=== PATIENT | male | born 1995 | race Caucasian/White ===

== ENCOUNTER 2016-08-22 22:36 | Observation (INO) | payer BC ==
--- NOTE | 2016-08-22 23:15 | PDOC ---
History of Present Illness - General Chief Complaint: Chest Pain Stated Complaint: CHEST PAIN X 2 DAYS Time Seen by Provider: 08/22/16 22:51 - History of Present Illness Initial Comments: 08/22/16 23:10 21-year-old male with a past medical history of hyperlipidemia, who is on no medications He is a nonsmoker, NKDA, and he denies any cocaine or drug use His mother had an WA at age 35 Patient is complaining of left sided chest tightness off and on for "a while", but for the past week, he has had multiple episodes of left sided chest tightness, radiating to his left shoulder, and it was almost constant today It is occasionally worse after eating and worse laying flat, and unrelated to exertion, but sometimes worse with musculoskeletal maneuvers He denies any associated abdominal pain He does admit to associated shortness of breath, and occasional palpitations It is also sometimes worse with deep inspiration He denies any travel or leg swelling He denies any cough or sputum, or recent intercurrent illnesses He states that the pain is been almost constant all day today He has been taking baby aspirin when he gets this chest pain which often helps him He denies any fall or injury He states he does not lift weights or do sports He denies any history of a heart murmur He denies any other complaints at this time, and the remainder of the review of systems is negative Past History - Past Medical History Allergies/Adverse Reactions: Allergies Allergy/AdvReac Type Severity Reaction Status Date / Time No Known Allergies Allergy Verified 08/22/16 23:27 Home Medications: Ambulatory Orders NK [No Known Home Medication] 08/22/16 Review of Systems - Review of Systems Able to Perform ROS?: Yes Comments:: 08/22/16 23:13 12 point review of systems is as per history of present illness and otherwise negative *Physical Exam - Physical Exam Comments: 08/22/16 23:13 Physical exam Last Vital Signs Temp Pulse Resp BP Pulse Ox 98.2 F 86 18 145/90 99 08/22/16 22:37 08/22/16 22:37 08/22/16 22:37 08/22/16 22:37 08/22/16 22:37 GENERAL: The patient is awake, alert, and fully oriented, and in no apparent distress. HEAD: Normal with no signs of trauma. EYES: sclera anicteric, conjunctiva are normal. ENT: Moist mucous membranes. NECK: Normal range of motion, supple LUNGS: Breath sounds equal, clear to auscultation bilaterally. No wheezes, and no crackles. HEART: Regular rate and rhythm, normal S1 and S2 without murmur, rub or gallop. CHEST WALL: There is some mild tenderness to palpation of the left anterior chest wall ABDOMEN: Soft, nontender, normoactive bowel sounds. No guarding, no rebound. No masses appreciated. EXTREMITIES: Normal range of motion, no edema. No clubbing or cyanosis. No cords, erythema, or tenderness. NEUROLOGICAL: Cranial nerves II through XII grossly intact. Normal speech, normal gait. PSYCH: Normal mood, normal affect. SKIN: Warm, Dry, normal turgor, no rashes or lesions noted. Heart Score/ECG Review - History History: Slightly suspicious - Electrocardiogram EKG: Non specific repolarization disturbance - Age Age: </= 45 - Risk Factors Risk Factors Heart Score: Yes Hx Hypercholesterolemia, Yes Positive family hx of cardiac disease Based on the list above the patient has:: 1-2 risk factors - Troponin Troponin: </= normal limit - Score Heart Score - Total: 2 ED Treatment Course - LABORATORY CBC & Chemistry Diagram: 08/23/16 00:35 08/23/16 00:35 Medical Decision Making - Medical Decision Making 08/22/16 23:51 EKG Normal sinus rhythm 80, normal axis Normal AV and IV conduction time Normal QTC LVH ND depression J-point elevation versus possible pericarditis pattern 08/23/16 01:47 21-year-old male with some cardiac risk factors, as well as a mildly abnormal EKG He is pain-free after aspirin Pain is somewhat atypical However given the above, would place in observation for serial enzymes, and cardiology consult Laboratory Results - last 24 hr 08/23/16 08/23/16 08/23/16 00:35 00:35 00:35 WBC 7.4 RBC 5.54 Hgb 15.1 Hct 45.7 MCV 82.6 MCHC 32.9 RDW 13.1 Plt Count 198 MPV 9.7 Sodium 143 Potassium 3.7 Chloride 105 Carbon Dioxide 28 Anion Gap 10 BUN 9 Creatinine 0.8 Creat Clearance w eGFR > 60 Random Glucose 92 Calcium 9.1 Total Bilirubin 0.4 AST 20 ALT 44 Alkaline Phosphatase 125 H Creatine Kinase 108 Troponin I < 0.02 Total Protein 7.5 Albumin 4.3 ESR is still pending 08/23/16 01:54 CXR PA and lat - NAD *DC/Admit/Observation/Transfer Diagnosis at time of Disposition: Chest pain, Abnormal EKG - Discharge Dispostion Condition at time of disposition: Good Admit: Yes
[2016-08-22] MEDS ORDERED: ASPIRIN 81 MG CHEWABLE TABLETS PO ONE (23:16)
[2016-08-22] MEDS ORDERED: ASPIRIN 81 MG CHEWABLE TABLETS ONE (23:30)
[2016-08-23 01:04] LABS: MCH 27.2 pg (25.7-33.7); MCHC 32.9 g/dl (32.0-35.9); MEAN CELL VOLUME 82.6 fl (80-96); MEAN PLT VOLUME 9.7 fl (7.5-11.1); PLATELET COUNT 198 K/MM3 (134-434); RDW 13.1 % (11.9-15.9); WHITE BLOOD COUNT 7.4 K/mm3 (4.0-10.0)
[2016-08-23 01:29] LABS: ALBUMIN 4.3 g/dl (3.4-5.0); ANION GAP 10 (8-16); BILIRUBIN,TOTAL 0.4 mg/dL (0.2-1.0); CALCIUM 9.1 mg/dL (8.5-10.1); CO2 28 mmol/L (21-32); CREATININE 0.8 mg/dL (0.7-1.3); GLUCOSE,RANDOM 92 mg/dL (74-106); SGOT/AST 20 U/L (15-37); SGPT/ALT 44 U/L (12-78); TOT PROT 7.5 g/dl (6.4-8.2)
[2016-08-23 01:31] LABS: ALK PHOS 125 U/L (45-117)
[2016-08-23 01:35] LABS: TROPONIN I < 0.02 ng/ml (0.00-0.05)
[2016-08-23 03:33] VITALS: BMI 22.8
--- NOTE | 2016-08-23 07:58 | HP ---
CHIEF COMPLAINT: palpations PCP: HISTORY OF PRESENT ILLNESS: patient is a 21 y/o male with a past medical history of hyperlipidemia (no medications). Patient reports intermittent episodes of palpations within the past 2 weeks. He reports the palpations occur while at rest towards the end of the day. In addition, he reports yesterday afternoon, left sided chest discomfort radiating to the left shoulder which became more frequent throughout the day and worsened upon lying down. As a result, he sought evaluation in the emergency department. Patient denies any shortness of breath or dizziness or syncopal episodes. ER course was notable for: (1) EKG, nsr, normal axis (2) troponin x 1, wnl (3) chest xray no infilitrates no effusions noted Recent Travel: none PAST MEDICAL HISTORY: hyperlpidemia PAST SURGICAL HISTORY: denies Social History: college student, resides at home with parents Smoking: none Alcohol:none Drugs: none Family History: father alive and well, mother Allergies No Known Allergies Allergy (Verified 08/22/16 23:27) HOME MEDICATIONS: Home Medications Medication Instructions Recorded NK [No Known Home Medication] 08/22/16 REVIEW OF SYSTEMS CONSTITUTIONAL: Absent: fever, chills, diaphoresis, generalized weakness, malaise, loss of appetite, weight change HEENT: Absent: rhinorrhea, nasal congestion, throat pain, throat swelling, difficulty swallowing, mouth swelling, ear pain, eye pain, visual changes CARDIOVASCULAR: Absent: chest pain, syncope, palpitations, irregular heart rate, lightheadedness , peripheral edema RESPIRATORY: Absent: cough, shortness of breath, dyspnea with exertion, orthopnea, wheezing, stridor, hemoptysis GASTROINTESTINAL: Absent: abdominal pain, abdominal distension, nausea, vomiting, diarrhea, constipation, melena, hematochezia GENITOURINARY: Absent: dysuria, frequency, urgency, hesitancy, hematuria, flank pain, genital pain MUSCULOSKELETAL: Absent: myalgia, arthralgia, joint swelling, back pain, neck pain SKIN: Absent: rash, itching, pallor HEMATOLOGIC/IMMUNOLOGIC: Absent: easy bleeding, easy bruising, lymphadenopathy, frequent infections ENDOCRINE: Absent: unexplained weight gain, unexplained weight loss, heat intolerance, cold intolerance NEUROLOGIC: Absent: headache, focal weakness or paresthesias, dizziness, unsteady gait, seizure, mental status changes, bladder or bowel incontinence PSYCHIATRIC: Absent: anxiety, depression, suicidal or homicidal ideation, hallucinations. PHYSICAL EXAMINATION Vital Signs - 24 hr 08/23/16 08/23/16 08/23/16 03:40 03:41 06:01 Temperature 98.3 F 97.9 F Pulse Rate 56 L 76 Respiratory 16 18 Rate Blood Pressure 131/86 129/71 O2 Sat by Pulse 97 100 Oximetry (%) GENERAL: thin, Awake, alert, and fully oriented, in no acute distress. HEAD: Normal with no signs of trauma. EYES: Pupils equal, round and reactive to light, extraocular movements intact, sclera anicteric, conjunctiva clear. No lid lag. EARS, NOSE, THROAT: Ears normal, nares patent, oropharynx clear without exudates. Moist mucous membranes. NECK: Normal range of motion, supple without lymphadenopathy, JVD, or masses. LUNGS: Breath sounds equal, clear to auscultation bilaterally. No wheezes, and no crackles. No accessory muscle use. HEART: Regular rate and rhythm, normal S1 and S2, 3/6 systolic murmur, no rub or gallop. ABDOMEN: Soft, nontender, not distended, normoactive bowel sounds, no guarding, no rebound, no masses. No hepatomegaly or splenomegaly. MUSCULOSKELETAL: Normal range of motion at all joints. No bony deformities or tenderness. No CVA tenderness. UPPER EXTREMITIES: 2+ pulses, warm, well-perfused. No cyanosis. No clubbing. Cap refill <2 seconds. No peripheral edema. LOWER EXTREMITIES: 2+ pulses, warm, well-perfused. No calf tenderness. No peripheral edema. NEUROLOGICAL: Cranial nerves II-XII intact. Normal speech. Normal gait. PSYCHIATRIC: Cooperative. Good eye contact. Appropriate mood and affect. SKIN: Warm, dry, normal turgor, no rashes or lesions noted. ASSESSMENT/PLAN: 1) card - 1st ekg reviewed, nsr elevated j point elevation noted, LVH, 2nd troponin slightly elevated, repeat ekg, j point elevation noted v3, v5, consistent with pericarditis, case discussed with cardiology Dr Herrera, pt will be evaluated by cardiology today - echo ordered, assesses for pericardial effusion - continous cardiac monitoring - trend troponin, repeat q6h - nsaids for pain f/e/n - reguulr diet ppx protonix oob dispo: requires observation telemetry Problem List - Problem (1) Abnormal EKG Code(s): R94.31 - ABNORMAL ELECTROCARDIOGRAM [ECG] [EKG] (2) Chest pain Code(s): R07.9 - CHEST PAIN, UNSPECIFIED (3) Elevated troponin Code(s): R79.89 - OTHER SPECIFIED ABNORMAL FINDINGS OF BLOOD CHEMISTRY (4) Pericarditis Code(s): I31.9 - DISEASE OF PERICARDIUM, UNSPECIFIED Visit type - Emergency Visit Emergency Visit: Yes ED Registration Date: 08/23/16 Care time: The patient presented to the Emergency Department on the above date and was hospitalized for further evaluation of their emergent condition. - New Patient This patient is new to me today: Yes Date on this admission: 08/23/16 - Critical Care Critical Care patient: Yes Total Critical Care Time (in minutes): 45 Critical Care Statement: The care of this patient involved high complexity decision making to prevent further life threatening deterioration of the patient 's condition and/or to evalute & treat vital organ system(s) failure or risk of failure.
[2016-08-23 08:00] LABS: TROPONIN I 0.12 ng/ml (0.00-0.05)
[2016-08-23 08:44] LABS: CPK(DFH) 92 IU/L (38-174)
[2016-08-23 09:09] LABS: TROPONIN I (DFP) < 0.03 ng/ml (0.03-0.50)
[2016-08-23] MEDS ORDERED: IBUPROFEN 600 MG TABLET (FP) PO PRN (09:14)
[2016-08-23] MEDS: PANTOPRAZOLE 40 MG TABLET (FP) PO SCH (09:57)
[2016-08-23] MEDS ORDERED: ASPIRIN 81 MG CHEWABLE TABLETS PO ONE (10:00)
[2016-08-23 10:25] LABS: URINE APPEARANCE CLEAR; URINE BILIRUBIN NEGATIVE (NEGATIVE); URINE BLOOD NEGATIVE (NEGATIVE); URINE COLOR YELLOW; URINE GLUCOSE (UA) NEGATIVE (NEGATIVE); URINE KETONE NEGATIVE (NEGATIVE); URINE LEUK ESTERASE NEGATIVE (NEGATIVE); URINE NITRITE NEGATIVE (NEGATIVE); URINE PROTEIN NEGATIVE (NEGATIVE); URINE UROBILINOGEN 0.2 E.U/dl (0.2-1.0)
[2016-08-23 11:11] LABS: CHOLESTEROL 288 mg/dl
[2016-08-23 13:02] LABS: CPK(DFH) 95 IU/L (38-174)
[2016-08-23 13:38] LABS: TROPONIN I (DFP) < 0.03 ng/ml (0.03-0.50)
--- NOTE | 2016-08-23 14:39 | CON.CARD ---
Cardiology Consult (text) - Consultation Consultation Note: CC: cp 21 y/o male with a past medical history of familial hyperlipidemia (no medications) presents with cp. States for the past week he has had intermittent chest discomfort/tightness lasting about an hour at a time and associated with fast heart rate and feeling like he can't get enough of a deep breath. Symptoms became more frequent over the course of the week. Symptoms mainly in the evenings and worse after eating. Improves with sitting up. No other associated symptoms. No preceding infection. No rheumatologic history. Denies orthopnea, pnd, le edema, dizziness, claudication, bleeding transient neurologic symptoms. denes f/c/s, n/v/d, headache, rashes, visual disturbances. 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 Multiple family members on mother's side with hyperlipidemia in their teens or 20's. Mother with arrhythmia in her 30's. Siblings healthy. ROS: PER hpi Ambulatory Orders NK [No Known Home Medication] 08/22/16 Current Medications Ibuprofen (Motrin -) 600 mg PO Q6H PRN PRN Reason: FEVER Pantoprazole Sodium (Protonix -) 40 mg PO DAILY SUZIE Last Admin: 08/23/16 09:57 Dose: 40 mg Vital Signs - 24 hr 08/22/16 08/23/16 08/23/16 22:37 02:39 03:40 Temperature 98.2 F 98.3 F Pulse Rate 86 56 L Pulse Rate [ 78 Left Radial] Respiratory 18 18 16 Rate Blood Pressure 145/90 131/86 Blood Pressure 138/78 [Left Arm] O2 Sat by Pulse 99 99 Oximetry (%) 08/23/16 08/23/16 08/23/16 03:41 06:01 10:00 Temperature 97.9 F 97.8 F Pulse Rate 76 93 H Pulse Rate [ Left Radial] Respiratory 18 18 Rate Blood Pressure 129/71 138/90 Blood Pressure [Left Arm] O2 Sat by Pulse 97 100 Oximetry (%) 08/23/16 14:03 Temperature 97.9 F Pulse Rate 87 Pulse Rate [ Left Radial] Respiratory 16 Rate Blood Pressure 128/79 Blood Pressure [Left Arm] O2 Sat by Pulse 98 Oximetry (%) Intake & Output 08/21/16 08/22/16 08/23/16 08/24/16 07:59 07:59 07:59 07:59 Weight 146 lb Nad, calm no jvd, neck supple ctab , nl effort rrr nl s1, s2 no mrg + bs soft nt nd ext without e/c/c + dp/pt aaox3 no jaundice, diaphoresis CBC, BMP 08/23/16 00:35 08/23/16 00:35 Laboratory Tests 08/23/16 08/23/16 08/23/16 00:35 00:35 06:30 Total Bilirubin 0.4 AST 20 ALT 44 Alkaline Phosphatase 125 H Creatine Kinase 108 42 Troponin I < 0.02 0.12 H D Albumin 4.3 Triglycerides Cholesterol Total LDL Cholesterol HDL Cholesterol 08/23/16 08/23/16 08/23/16 07:00 07:00 12:30 Total Bilirubin AST ALT Alkaline Phosphatase Creatine Kinase 92 95 Troponin I < 0.03 L < 0.03 L Albumin Triglycerides 86 Cholesterol 288 Total LDL Cholesterol 234 HDL Cholesterol 37 ESR negative, crp not drawn Echo: nl lv/rv/valves. Borderline aortic root dilation. no pericardial effusion. ek/1: sr with sinus arrhythmia. J point elevation. MO elevation in avr. Diffuse pr depression ekg 08/23 x 2 similar. non-specific 0.5 borderline upsloping ADRIANA in inferior leads tele: SR/sinus arrhthmia, sinus tach, SB overnight CXR: wnl 21 y/o male with a past medical history of familial hyperlipidemia (no medications) presents with cp. CP - CE;s neg x 3. EKG without ischemic changes. Ekg could be consistent with pericarditis. Would consider treating empirically with ibuprofen 800 mg tid x 2-3 weeks. colchicine 0.6 mg bid x 3 months. As well as PPI for GI protection. Would give first dose as inpatient and if symptoms worsen would not continue treatment. Instead would continue PPI only and follow up with pcp for GI evaluation since differential for his positional CP is GERD/GI etiology. Hyperlipidemia (familial) - Patient should follow up with my office as outpatient for further evaluation of his familial hyperlipidemia and CAD risk evaluation.
--- NOTE | 2016-08-23 18:07 | EKG ---
Test Reason : Blood Pressure : / mmHG Vent. Rate : 071 BPM Atrial Rate : 071 BPM P-R Int : 128 ms QRS Dur : 102 ms QT Int : 382 ms P-R-T Axes : 039 069 059 degrees QTc Int : 415 ms NORMAL SINUS RHYTHM ST ELEVATION, CONSIDER EARLY REPOLARIZATION WHEN COMPARED WITH ECG OF 22-AUG-2016 23:19, NO SIGNIFICANT CHANGE WAS FOUND Confirmed by MD EDGAR, VIC ([id number]) on 08/23/2016 6:07:05 PM Referred By: [facility] Confirmed By:VIC HERNÁNDEZ MD
--- NOTE | 2016-08-23 18:09 | EKG ---
Test Reason : Blood Pressure : / mmHG Vent. Rate : 081 BPM Atrial Rate : 081 BPM P-R Int : 144 ms QRS Dur : 100 ms QT Int : 358 ms P-R-T Axes : 069 069 065 degrees QTc Int : 415 ms NORMAL SINUS RHYTHM WITH SINUS ARRHYTHMIA MINIMAL VOLTAGE CRITERIA FOR LVH, MAY BE NORMAL VARIANT NSST changes NO PREVIOUS ECGS AVAILABLE Confirmed by MD HERNÁNDEZ MARJORY ([id number]) on 08/23/2016 6:08:48 PM Referred By: MD BURNS Confirmed By:VIC HERNÁNDEZ MD
[2016-08-24 06:46] VITALS: TEMP 97.6
[2016-08-24] MEDS ORDERED: IBUPROFEN 600 MG TABLET (FP) PO SCH (06:54)
[2016-08-24 08:13] VITALS: BP 140/68; PULSE 72
[2016-08-24] MEDS ORDERED: IBUPROFEN 400 MG TABLET (FP) PO SCH (08:15)
[2016-08-24] MEDS: PANTOPRAZOLE 40 MG TABLET (FP) PO SCH (09:00)
[2016-08-24] MEDS ORDERED: COLCHICINE 0.6 MG TABLET (FP) PO SCH (10:00)
--- NOTE | 2016-08-24 11:03 | EKG ---
Test Reason : Blood Pressure : / mmHG Vent. Rate : 082 BPM Atrial Rate : 082 BPM P-R Int : 138 ms QRS Dur : 100 ms QT Int : 372 ms P-R-T Axes : 053 073 065 degrees QTc Int : 434 ms NORMAL SINUS RHYTHM WITH SINUS ARRHYTHMIA MINIMAL VOLTAGE CRITERIA FOR LVH, MAY BE NORMAL VARIANT EARLY REPOLARIZATION WHEN COMPARED WITH ECG OF 23-AUG-2016 08:52, NO SIGNIFICANT CHANGE WAS FOUND Confirmed by ALBARO WALSH MD ([id number]) on 08/24/2016 11:03:06 AM Referred By: Confirmed By:ALBARO WALSH MD
== END 2016-08-24 12:09 | disposition home or self-care (01) ==
LOC: EDSEX → FER 22:36 → FM/S 08-23 03:13
PROVIDERS: ADMIT Internal Medicine; ATTEND Nurse Practitioner Family
DX: I31.9 Disease of pericardium, unspecified (principal); R94.31 Abnormal electrocardiogram [ECG] [EKG]; R79.89 Other specified abnormal findings of blood chemistry; E78.5 Hyperlipidemia, unspecified; R07.9 Chest pain, unspecified
CPT/HCPCS: 36415; 71020-TC; 80053; 80061; 81003; 82550; 84484; 85027; 85651; 93005; 93010; 93306-TC; 99285-25; G0378

== ENCOUNTER 2016-09-26 19:33 | Emergency (ER) | payer BC ==
[2016-09-26 19:39] VITALS: BP 147/90; PULSE 90; TEMP 98.5; BMI 23.5
--- NOTE | 2016-09-26 19:39 | PDOC ---
History of Present Illness - General History Source: Patient Exam Limitations: No Limitations - History of Present Illness Initial Comments: 09/26/16 19:46 The patient is a 21 year old male, with no significant past medical history who presents to the emergency department with bilateral groin pain for about a week. The patient reports carrying a heavy object the day before the onset of his pain. He reports having an US done that was normal. He reports taking NSAIDs with no alleviation of his pain. He also reports seeing a urologist in the past. He describes the pain as a discomfort and worse when he sits or bends. He ranks his pain a 6/10 in pain intensity. He denies any numbness and tingling. He denies any dysuria and hematuria. He denies any recent fevers, chills, headache or dizziness. He denies any recent nausea, vomit, diarrhea or constipation. Allergies: NKA Past surgical history: None reported. Social History: Social EtOH use. <Josiah Gilman - Last Filed: 09/26/16 20:00> <Prema Disla - Last Filed: 09/26/16 21:55> - General Chief Complaint: Pain Stated Complaint: BILAT GROIN PAIN X1 WK Past History <Josiah Gilman - Last Filed: 09/26/16 20:00> - Past Medical History Hypercholesterolemia: Yes - Immunization History Immunization Up to Date: Yes - Psycho/Social/Smoking Cessation Hx Anxiety: No Suicidal Ideation: No Smoking History: Current every day smoker Have you smoked in the past 12 months: No Number of Cigarettes Smoked Daily: 10 Information on smoking cessation initiated: Yes 'Breaking Loose' booklet given: 09/26/16 Hx Alcohol Use: No Drug/Substance Use Hx: No Substance Use Type: None <Prema Disla - Last Filed: 09/26/16 21:55> - Past Medical History Allergies/Adverse Reactions: Allergies Allergy/AdvReac Type Severity Reaction Status Date / Time No Known Allergies Allergy Verified 08/22/16 23:27 Home Medications: Ambulatory Orders Colchicine [Colcrys -] 0.6 mg PO BID #60 tablet 08/24/16 Ibuprofen [Motrin -] 800 mg PO TID PRN #120 tablet 08/24/16 Pantoprazole Sodium [Protonix -] 40 mg PO DAILY #30 tablet.ec 08/24/16 Review of Systems - Review of Systems Able to Perform ROS?: Yes Comments:: 09/26/16 19:46 GENERAL/CONSTITUTIONAL: No fever or chills. No weakness. HEAD, EYES, EARS, NOSE AND THROAT: No change in vision. No ear pain or discharge. No sore throat. CARDIOVASCULAR: No chest pain or shortness of breath. RESPIRATORY: No cough, wheezing, or hemoptysis. GASTROINTESTINAL: No nausea, vomiting, diarrhea or constipation. GENITOURINARY: No dysuria, frequency, or change in urination. MUSCULOSKELETAL: +bilateral groin pain. No joint or muscle swelling or pain. No neck or back pain. SKIN: No rash NEUROLOGIC: No headache, vertigo, loss of consciousness, or change in strength/ sensation. ENDOCRINE: No increased thirst. No abnormal weight change. HEMATOLOGIC/LYMPHATIC: No anemia, easy bleeding, or history of blood clots. ALLERGIC/IMMUNOLOGIC: No hives or skin allergy. <Josiah Gilman - Last Filed: 09/26/16 20:00> *Physical Exam - Vital Signs Last Vital Signs Temp Pulse Resp BP Pulse Ox 98.5 F 90 14 147/90 100 09/26/16 19:35 09/26/16 19:35 09/26/16 19:35 09/26/16 19:35 09/26/16 19:35 <Josiah Gilman - Last Filed: 09/26/16 20:00> - Vital Signs Last Vital Signs Temp Pulse Resp BP Pulse Ox 98.5 F 90 14 147/90 100 09/26/16 19:35 09/26/16 19:35 09/26/16 19:35 09/26/16 19:35 09/26/16 19:35 - Physical Exam Comments: GENERAL: Awake, alert, and fully oriented, in no acute distress HEAD: No signs of trauma EYES: PERRLA, EOMI, sclera anicteric, conjunctiva clear ENT: Auricles normal inspection, hearing grossly normal, nares patent, oropharynx clear without exudates. Moist mucosa NECK: Normal ROM, supple, no lymphadenopathy, JVD, or masses LUNGS: Breath sounds equal, clear to auscultation bilaterally. No wheezes, and no crackles HEART: Regular rate and rhythm, normal S1 and S2, no murmurs, rubs or gallops ABDOMEN: Soft, nontender, normoactive bowel sounds. No guarding, no rebound. No masses EXTREMITIES: Normal range of motion, no edema. No clubbing or cyanosis. No cords, erythema, or tenderness NEUROLOGICAL: Cranial nerves II through XII grossly intact. Normal speech, normal gait SKIN: Warm, Dry, normal turgor, no rashes or lesions noted. : Mild B/L testicular tenderness. Normal lie. No erythema, no induration. <Prema Disla - Last Filed: 09/26/16 21:55> *DC/Admit/Observation/Transfer - Attestations Scribe Attestion: 09/26/16 19:46 Documentation prepared by Josiah Gilman, acting as medical consultant for Prema Disla MD. <Josiah Gilman - Last Filed: 09/26/16 20:00> - Discharge Dispostion Admit: No <Prema Disla - Last Filed: 09/26/16 21:55> Diagnosis at time of Disposition: Hydrocele, bilateral - Discharge Dispostion Disposition: HOME Condition at time of disposition: Good - Referrals Referrals: STAFF,NOT ON [Primary Care Provider] - - Patient Instructions Printed Discharge Instructions: DI for Hydrocele-Adult
[2016-09-26 20:26] LABS: URINE APPEARANCE Clear; URINE BILIRUBIN Negative (NEGATIVE); URINE BLOOD Negative (NEGATIVE); URINE COLOR YELLOW; URINE GLUCOSE (UA) Negative (NEGATIVE); URINE KETONE Negative (NEGATIVE); URINE LEUK ESTERASE Negative (NEGATIVE); URINE NITRITE Negative (NEGATIVE); URINE PROTEIN Negative (NEGATIVE); URINE UROBILINOGEN 0.2 E.U/dl (0.2-1.0)
== END 2016-09-26 22:23 | disposition home or self-care (01) ==
LOC: FER 19:33
DX: N43.3 Hydrocele, unspecified (principal)
CPT/HCPCS: 76870-TC; 81003; 99282-25

== ENCOUNTER 2016-11-24 14:22 | Emergency (ER) | payer BC, OTHER ==
[2016-11-24 14:30] VITALS: TEMP 97.5; BMI 21.9
--- NOTE | 2016-11-24 14:44 | PDOC ---
History of Present Illness - General History Source: Patient, Old Records Exam Limitations: No Limitations <Viviane Hughes - Last Filed: 11/24/16 14:53> - General History Source: Patient, Family, Old Records Exam Limitations: No Limitations - History of Present Illness Initial Comments: 11/24/16 15:15 The patient is a 21 year old male presenting with his mother, with no significant past medical history, who presents to the emergency department with chest pain, shortness of breath and testicular pain for the past 3-4 months. He describes his testicular pain as a sharp, burning sensation, that ranges from moderate to severe. He notes that he constantly has to keep adjusting himself to make himself more comfortable. He denies being sexually active, he denies any penile discharge. He states that he has seen an urologist during this time frame, without any resolvement of his symptoms. He had an ultrasound of the scrotum during this time frame, which was normal. He describes his chest pain as a pressure like sensation, which causes him to have shortness of breath. He denies any radiation of the pain. He notes that taking a deep breath exacerbates his pain. During this time frame, in August he was worked up by a injection maintenance technician, echocardiogram and stress test were normal, he was treated for pericarditis. He had a chest X-ray and chest CT which were within normal limits. He notes that he has been taking Aleve and Ibuprofen for his pain, with minima relief. The patient denies headache and dizziness. Denies fever, chills, nausea, vomit, diarrhea and constipation. Denies dysuria, frequency, urgency and hematuria. (The patient has 2 medical record numbers on file.) Allergies: None Past surgical history: None reported Social history: No alcohol, tobacco or drug use reported <Kenny Contreras - Last Filed: 11/24/16 15:25> - General Chief Complaint: Chest Pain Stated Complaint: CHEST PAIN Time Seen by Provider: 11/24/16 14:35 Past History - Past Medical History Other medical history: denies - Immunization History Immunization Up to Date: Yes - Psycho/Social/Smoking Cessation Hx Suicidal Ideation: No Smoking Status: No Smoking History: Never smoked Number of Cigarettes Smoked Daily: 0 Information on smoking cessation initiated: No Hx Alcohol Use: No Drug/Substance Use Hx: No <Viviane Hughes - Last Filed: 11/24/16 14:53> <[email or web address] August - Last Filed: 11/24/16 15:25> - Past Medical History Allergies/Adverse Reactions: Allergies Allergy/AdvReac Type Severity Reaction Status Date / Time No Known Allergies Allergy Verified 11/24/16 14:28 Home Medications: Ambulatory Orders Atorvastatin Ca [Lipitor] 20 mg PO HS 11/24/16 Review of Systems - Review of Systems Able to Perform ROS?: Yes Comments:: 11/24/16 15:15 GENERAL/CONSTITUTIONAL: No fever or chills. No weakness. HEAD, EYES, EARS, NOSE AND THROAT: No change in vision. No ear pain or discharge. No sore throat. CARDIOVASCULAR: (+) Chest pain and shortness of breath RESPIRATORY: No cough, wheezing, or hemoptysis. GASTROINTESTINAL: No nausea, vomiting, diarrhea or constipation. GENITOURINARY: (+) Testicular pain. No dysuria, frequency, or change in urination. MUSCULOSKELETAL: No joint or muscle swelling or pain. No neck or back pain. SKIN: No rash NEUROLOGIC: No headache, vertigo, loss of consciousness, or change in strength/ sensation. ENDOCRINE: No increased thirst. No abnormal weight change HEMATOLOGIC/LYMPHATIC: No anemia, easy bleeding, or history of blood clots. ALLERGIC/IMMUNOLOGIC: No hives or skin allergy. <Kenny Contreras - Last Filed: 11/24/16 15:25> *Physical Exam - Vital Signs Last Vital Signs Temp Pulse Resp BP Pulse Ox 97.5 F L 88 18 169/80 97 11/24/16 14:28 11/24/16 14:28 11/24/16 14:28 11/24/16 14:28 11/24/16 14:28 <Viviane Hughes - Last Filed: 11/24/16 14:53> - Vital Signs Last Vital Signs Temp Pulse Resp BP Pulse Ox 97.5 F L 88 18 169/80 97 11/24/16 14:28 11/24/16 14:28 11/24/16 14:28 11/24/16 14:28 11/24/16 14:28 - Physical Exam Comments: 11/24/16 15:15 GENERAL: Awake, alert, and fully oriented, in no acute distress HEAD: No signs of trauma, normocephalic, atraumatic EYES: PERRLA, EOMI, sclera anicteric, conjunctiva clear ENT: Auricles normal inspection, hearing grossly normal, nares patent, oropharynx clear without exudates. Moist mucosa NECK: Normal ROM, supple, no lymphadenopathy, JVD, or masses LUNGS: No distress, speaks full sentences, clear to auscultation bilaterally HEART: Regular rate and rhythm, normal S1 and S2, no murmurs, rubs or gallops, peripheral pulses normal and equal bilaterally. ABDOMEN: Soft, nontender, normoactive bowel sounds. No guarding, no rebound. No masses PENILE EXAM: Uncircumised penis, no scrotal erythema, no penile discharge. No lesions. EXTREMITIES: Normal inspection, Normal range of motion, no edema. No clubbing or cyanosis. NEUROLOGICAL: Cranial nerves II through XII grossly intact. Normal speech, normal gait, no focal sensorimotor deficits SKIN: Warm, Dry, normal turgor, no rashes or lesions noted. <Kenny Contreras - Last Filed: 11/24/16 15:25> ED Treatment Course - LABORATORY CBC & Chemistry Diagram: 11/24/16 15:00 11/24/16 15:00 <Kenny Contreras - Last Filed: 11/24/16 15:25> Medical Decision Making - Medical Decision Making 11/24/16 14:53 This is a 21-year-old male who was treated within the past 3 months for pericarditis and had a full cardiac workup including a stress test and an echo which were normal presents to the emergency Department with complaints of shortness of breath and diffuse body pain including scrotal pain. The patient also had an extensive workup for his scrotal pain including an ultrasound which showed bilateral hydroceles and pelvis CT which was normal. Differential diagnosis includes but is not limited to: Coronary embolism, pneumothorax, anxiety, electrolyte abnormality, toxic/metabolic derangement. Plan: 1. EKG 2. CT chest 3. Labs 4. Observe and reevaluate <Viviane Hughes - Last Filed: 11/24/16 14:53> *DC/Admit/Observation/Transfer - Attestations Physician Attestion: 11/24/16 14:55 I, Dr. Viviane Hughes, attest that the scribes documentation that appears above has been prepared under my direction and personally reviewed by me in its entirety. I confirmed that the note above accurately reflects all work, treatment, procedures, and medical decision-making performed by me. <Viviane Hughes - Last Filed: 11/24/16 14:53> - Attestations Scribe Attestion: 11/24/16 15:15 Documentation prepared by Kenny Contreras, acting as medical technologist blood bank for Viviane Hughes MD <Kenny Contreras - Last Filed: 11/24/16 15:25> Diagnosis at time of Disposition: Shortness of breath - Referrals Referrals: Se Giron MD, MD [Primary Care Provider] -
[2016-11-24 15:09] LABS: BASOPHIL 0.6 % (0-2.0); EOSINOPHIL 5.4 % (0-4.5); MCHC 32.3 g/dl (32.0-35.9); MEAN CELL VOLUME 83.4 fl (80-96); MEAN PLT VOLUME 9.7 fl (7.5-11.1); NEUTROPHILS 43.2 % (42.8-82.8); PLATELET COUNT 199 K/MM3 (134-434); RDW 12.9 % (11.9-15.9); WHITE BLOOD COUNT 6.7 K/mm3 (4.0-10.0)
[2016-11-24 15:31] LABS: URINE APPEARANCE CLEAR; URINE BILIRUBIN NEGATIVE (NEGATIVE); URINE BLOOD NEGATIVE (NEGATIVE); URINE COLOR STRAW; URINE GLUCOSE (UA) NEGATIVE (NEGATIVE); URINE KETONE NEGATIVE (NEGATIVE); URINE LEUK ESTERASE NEGATIVE (NEGATIVE); URINE NITRITE NEGATIVE (NEGATIVE); URINE PROTEIN NEGATIVE (NEGATIVE); URINE UROBILINOGEN NEGATIVE E.U./dl (0.2-1.0)
[2016-11-24 15:35] LABS: ALBUMIN 4.7 g/dl (3.4-5.0); ANION GAP 9 (8-16); BILIRUBIN,TOTAL 0.6 mg/dL (0.2-1.0); CALCIUM 9.4 mg/dL (8.5-10.1); CO2 27 mmol/L (21-32); COCKROFT - GAULT 117.59; CREATININE 0.9 mg/dL (0.7-1.3); GLUCOSE,RANDOM 93 mg/dL (74-106); SGOT/AST 21 U/L (15-37); SGPT/ALT 55 U/L (12-78); TOT PROT 7.7 g/dl (6.4-8.2)
[2016-11-24 15:38] LABS: ALK PHOS 128 U/L (45-117); TROPONIN I < 0.02 ng/ml (0.00-0.05)
[2016-11-24 15:42] LABS: URINE MARIJUANA THC NEGATIVE ng/ml (CUTOFF=50)
--- NOTE | 2016-11-24 17:10 | PDOC ---
*Physical Exam - Vital Signs Last Vital Signs Temp Pulse Resp BP Pulse Ox 97.5 F L 88 18 169/80 97 11/24/16 14:28 11/24/16 14:28 11/24/16 14:28 11/24/16 14:28 11/24/16 14:28 ED Treatment Course - LABORATORY CBC & Chemistry Diagram: 11/24/16 15:00 11/24/16 15:00 - ADDITIONAL ORDERS Additional order review: Laboratory Results 11/24/16 11/24/16 11/24/16 15:12 15:12 15:00 D-Dimer Sodium 140 Potassium 4.4 Chloride 104 Carbon Dioxide 27 Anion Gap 9 BUN 14 Creatinine 0.9 Creat Clearance w eGFR > 60 Random Glucose 93 Calcium 9.4 Total Bilirubin 0.6 AST 21 ALT 55 Alkaline Phosphatase 128 H Creatine Kinase 119 Troponin I < 0.02 Total Protein 7.7 Albumin 4.7 Urine Color Straw Urine Appearance Clear Urine pH 7.0 Urine Protein Negative Urine Glucose (UA) Negative Urine Ketones Negative Urine Blood Negative Urine Nitrite Negative Urine Bilirubin Negative Urine Urobilinogen Negative Ur Leukocyte Esterase Negative Opiates Screen Negative Methadone Screen Negative Barbiturate Screen Negative Phencyclidine Screen Negative Ur Amphetamines Screen Negative MDMA (Ecstasy) Screen Negative Benzodiazepines Screen Negative Cocaine Screen Negative U Marijuana (THC) Screen Negative 11/24/16 15:00 D-Dimer < 200 Sodium Potassium Chloride Carbon Dioxide Anion Gap BUN Creatinine Creat Clearance w eGFR Random Glucose Calcium Total Bilirubin AST ALT Alkaline Phosphatase Creatine Kinase Troponin I Total Protein Albumin Urine Color Urine Appearance Urine pH Urine Protein Urine Glucose (UA) Urine Ketones Urine Blood Urine Nitrite Urine Bilirubin Urine Urobilinogen Ur Leukocyte Esterase Opiates Screen Methadone Screen Barbiturate Screen Phencyclidine Screen Ur Amphetamines Screen MDMA (Ecstasy) Screen Benzodiazepines Screen Cocaine Screen U Marijuana (THC) Screen 11/24/16 15:00 RBC 5.71 H MCV 83.4 MCHC 32.3 RDW 12.9 MPV 9.7 Neutrophils % 43.2 Lymphocytes % 42.2 H Monocytes % 8.6 Eosinophils % 5.4 H Basophils % 0.6 Progress Note - Progress Note Progress Note: Patient signed out by Dr. Hughes as pending CT PE results. CT is read as negative by radiologist. Patient is resting comfortably with no complaints. I have spoken to the patient and the family, and they understand that the patient will be discharged and that he needs to follow up with his primary care doctor. *DC/Admit/Observation/Transfer Diagnosis at time of Disposition: Shortness of breath - Discharge Dispostion Disposition: HOME Condition at time of disposition: Good Admit: No - Referrals Referrals: Se Giron MD, MD [Primary Care Provider] - - Patient Instructions Printed Discharge Instructions: DI for Chest Pain - Post Discharge Activity
[2016-11-24 17:24] VITALS: BP 131/82; PULSE 87
--- NOTE | 2016-11-24 19:14 | EKG ---
Test Reason : Blood Pressure : / mmHG Vent. Rate : 094 BPM Atrial Rate : 094 BPM P-R Int : 134 ms QRS Dur : 094 ms QT Int : 332 ms P-R-T Axes : 069 063 061 degrees QTc Int : 415 ms NORMAL SINUS RHYTHM WITH SINUS ARRHYTHMIA NORMAL ECG NO PREVIOUS ECGS AVAILABLE Confirmed by ARELY SHULTZ MD ([id number]) on 11/24/2016 7:14:32 PM Referred By: Confirmed By:ARELY SHULTZ MD
== END 2016-11-24 17:24 | disposition home or self-care (01) ==
LOC: MERGE 14:22 → JER 14:22
DX: R06.02 Shortness of breath (principal)
CPT/HCPCS: 36415; 71020-TC; 71275-TC; 80053; 80307; 81003; 82550; 84484; 85025; 85379; 93005; 93010; 99285-25

== ENCOUNTER 2017-03-05 00:12 | Emergency (ER) | payer BC ==
[2017-03-05 00:58] VITALS: BP 152/90; PULSE 91; BMI 21.9
--- NOTE | 2017-03-05 01:01 | PDOC ---
History of Present Illness - General Chief Complaint: Pain Stated Complaint: TESTICULAR PAIN Time Seen by Provider: 03/05/17 00:53 Past History - Past Medical History Allergies/Adverse Reactions: Allergies Allergy/AdvReac Type Severity Reaction Status Date / Time No Known Allergies Allergy Verified 03/05/17 00:55 Home Medications: Ambulatory Orders Colchicine [Colcrys -] 0.6 mg PO BID #60 tablet 08/24/16 Ibuprofen [Motrin -] 800 mg PO TID PRN #120 tablet 08/24/16 Pantoprazole Sodium [Protonix -] 40 mg PO DAILY #30 tablet.ec 08/24/16 Atorvastatin Ca [Lipitor] 20 mg PO HS 11/24/16 Hypercholesterolemia: Yes - Immunization History Immunization Up to Date: Yes - Psycho/Social/Smoking Cessation Hx Anxiety: No Suicidal Ideation: No Smoking Status: No Smoking History: Never smoked Have you smoked in the past 12 months: No Number of Cigarettes Smoked Daily: 10 Information on smoking cessation initiated: No 'Breaking Loose' booklet given: 09/26/16 Hx Alcohol Use: No Drug/Substance Use Hx: No Substance Use Type: None *Physical Exam - Vital Signs Last Vital Signs Temp Pulse Resp BP Pulse Ox 91 H 14 152/90 98 03/05/17 00:56 03/05/17 00:56 03/05/17 00:56 03/05/17 00:56
--- NOTE | 2017-03-05 01:38 | PDOC ---
Attending Attestation - Resident Resident Name: Jose MariajacamelieJavad - ED Attending Attestation I have performed the following: I have examined & evaluated the patient, The case was reviewed & discussed with the resident, I agree w/resident's findings & plan, Exceptions are as noted - HPI HPI: 03/05/17 01:36 21-year-old male presents with testicular pain for several months. He has had a prior workup with testicular ultrasound and has been followed by Dr. Pierson. 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 Denies smoking, alcohol or drugs. - Physicial Exam PE: 03/05/17 01:38 Well-nourished, well-developed 21-year-old male HEENT within normal limits. Neck supple Lungs clear to auscultation bilaterally Cardiovascular regular rate and rhythm S1, S2 Abdomen soft, nontender, no rebound or guarding. no erythema or palpable masses Extremities no deformity, full range of motion. Neuro alert and oriented 3. No gross focal neural deficits 03/05/17 02:24 - Medical Decision Making 03/05/17 02:25 Upon further discussion with pt he has an appt with a neurologist for this pain , differential includes pudendal nerve entrapment.Pt has extensive w/u with urologist and pt was told to see the neurologist 03/05/17 02:30 IMP CHRONIC PERINEUM PAIN PLAN KEEP APPT W NEURO
--- NOTE | 2017-03-05 02:09 | PDOC ---
History of Present Illness - General Chief Complaint: Pain Stated Complaint: TESTICULAR PAIN Time Seen by Provider: 03/05/17 00:53 History Source: Patient, Family (Mother) Exam Limitations: No Limitations - History of Present Illness Initial Comments: 03/05/17 02:04 The patient is a 21M with no PMH who presents to the ED with testicular pain. The patient states that the pain started 6 months ago after lifting a heavy jug of water. He has been seen by a urologist with no explanation as to why he is having this pain. The patient states that over the past month the pain has been constant and tonight it is unbearable. He is not sexually active. He denies pain in his testicles and states that his pain is posterior to his testicles but can radiate to his testicles. No discharge, hematuria, rash, itching, fever , chills. He admits to sharp pain and a burning sensation (not during urination ) but just around the perineal area. Past History - Past Medical History Allergies/Adverse Reactions: Allergies Allergy/AdvReac Type Severity Reaction Status Date / Time No Known Allergies Allergy Verified 03/05/17 00:55 Home Medications: Ambulatory Orders Colchicine [Colcrys -] 0.6 mg PO BID #60 tablet 08/24/16 Ibuprofen [Motrin -] 800 mg PO TID PRN #120 tablet 08/24/16 Pantoprazole Sodium [Protonix -] 40 mg PO DAILY #30 tablet.ec 08/24/16 Atorvastatin Ca [Lipitor] 20 mg PO HS 11/24/16 Cyclobenzaprine HCl [Flexeril 10 mg] 10 mg PO PRN PRN #15 tablet MDD 30 mg 03/05 Hypercholesterolemia: Yes - Immunization History Immunization Up to Date: Yes - Psycho/Social/Smoking Cessation Hx Anxiety: No Suicidal Ideation: No Smoking Status: No Smoking History: Never smoked Have you smoked in the past 12 months: No Number of Cigarettes Smoked Daily: 10 Information on smoking cessation initiated: No 'Breaking Loose' booklet given: 09/26/16 Hx Alcohol Use: No Drug/Substance Use Hx: No Substance Use Type: None Review of Systems - Review of Systems Able to Perform ROS?: Yes Is the patient limited Omani proficient: No Constitutional: No: Chills, Fever Respiratory: No: Shortness of Breath Cardiac (ROS): No: Chest Pain ABD/GI: Yes: Nausea. No: Constipated, Diarrhea, Vomiting, Other (abd pain) : Yes: Pain, Testicular Swelling (mild hydrocele). No: Burning, Dysuria, Discharge, Flank Pain, Hematuria, Incontinence, Lesions, Testicular Pain Neurological: Yes: Headache. No: Numbness, Tingling, Weakness *Physical Exam - Vital Signs Last Vital Signs Temp Pulse Resp BP Pulse Ox 91 H 14 152/90 98 03/05/17 00:56 03/05/17 00:56 03/05/17 00:56 03/05/17 00:56 - Physical Exam General Appearance: Yes: Nourished, Appropriately Dressed HEENT: positive: Normal Voice, Hearing Grossly Normal Respiratory/Chest: positive: Lungs Clear, Normal Breath Sounds. negative: Chest Tender, Respiratory Distress Cardiovascular: positive: Regular Rhythm, Regular Rate, S1, S2. negative: Diastolic Murmur, Systolic Murmur Gastrointestinal/Abdominal: positive: Flat, Soft. negative: Tender, Distended, Guarding, Rebound, Tenderness Male Genitalia: negative: discharge, testicular tenderness, testicular mass, epididymus tender, inguinal hernia, hematuria Musculoskeletal: negative: CVA Tenderness (R), CVA Tenderness (L) Extremity: positive: Normal Inspection, Normal Range of Motion, Pelvis Stable. negative: Swelling, Calf Tenderness, Erythema, Inflammation Integumentary: positive: Dry, Warm. negative: Clammy, Rash, Swelling, Ecchymosis Neurologic: positive: Fully Oriented, Alert, Normal Mood/Affect, Motor Strength 5/5 Medical Decision Making - Medical Decision Making 03/05/17 02:13 The patient is a 21M with no PMH who presents to the ED with unbearable pain posterior to his testicles. The patient has been seen and followed by urology with negative CT's and U/S. I have ordered an US to r/o testicular torsion. It is negative for torsion. Will discuss this case with attending and dispo. 03/05/17 02:25 Patient has f/u with a neurologist on Saturday. Will try flexeril to see if this helps the patient's pain. Patient agrees. 03/05/17 03:40 Patient states that he feels "a little" better 2/2 flexeril. Will prescribe this outpatient. I have discussed follow up with neurology and urology for the patient. Patient understands and is ready for d/c. *DC/Admit/Observation/Transfer Diagnosis at time of Disposition: Pain in testicle - Discharge Dispostion Disposition: HOME Condition at time of disposition: Stable Admit: No - Prescriptions Prescriptions: Cyclobenzaprine HCl [Flexeril 10 mg] 10 mg PO PRN PRN #15 tablet MDD 30 mg PRN Reason: Pain - Referrals Referrals: Se Giron MD, [Primary Care Provider] - - Patient Instructions Additional Instructions: Please return to the ER if symptoms persist, worsen, or if new symptoms arise. Please follow up with your primary care doctor in 2-3 days. Please call your urologist for follow up. Please keep your appointment with your neurologist.
[2017-03-05] MEDS ORDERED: CYCLOBENZAPRINE HCL 10 MG TABLET (FP) ONE (03:17)
[2017-03-05] MEDS ORDERED: CYCLOBENZAPRINE HCL 5 MG TABLET PO SCH ×2 (03:30→10:00)
== END 2017-03-05 03:59 | disposition home or self-care (01) ==
LOC: JER 00:12
DX: N50.819 Testicular pain, unspecified (principal)
CPT/HCPCS: 76870-TC; 99281-25

== ENCOUNTER 2017-05-22 18:13 | Emergency (ER) | payer SELFPAY ==
--- NOTE | 2017-05-22 18:15 | PDOC ---
History of Present Illness <Krish Price - Last Filed: 05/22/17 18:52> - General History Source: Patient Exam Limitations: No Limitations - History of Present Illness Initial Comments: 05/22/17 18:54 The patient is a 21 year old male, with a significant past medical history hydrocele, who presents to the emergency department with 3 days of lower left quadrant abdominal pain and constipation. The patient reports his pain to usually be intermittent, however, today it was constant. He reports his pain intermittently radiates into his right lower quadrant. He reports having a bowel movement today, however, his stool was loose. He denies any associated nausea or vomiting. He reports having testicular pain for 9 months which he has followed up with a urologist and was diagnosed with a hydrocele. He denies any changes in urinary output, dysuria, hematuria, frequency, or urgency. He reports a normal appetite. He denies any recent fevers, chills, headache or dizziness. He denies any recent chest pain or shortness of breath. Allergies: NKA Past surgical history: None reported. Familial History: Maternal Uncle: Stomach Cancer ( at 25 yo) Social History: Nonsmoker. Denies EtOH use and recreational drug use. <Jason Short - Last Filed: 05/22/17 18:56> - General Chief Complaint: Pain Stated Complaint: ABDOMINAL PAIN Time Seen by Provider: 05/22/17 18:15 Past History - Past Medical History Hypercholesterolemia: Yes - Immunization History Immunization Up to Date: Yes - Suicide/Smoking/Psychosocial Hx Smoking Status: No Smoking History: Never smoked Have you smoked in the past 12 months: No Number of Cigarettes Smoked Daily: 10 'Breaking Loose' booklet given: 09/26/16 Hx Alcohol Use: No Drug/Substance Use Hx: No Substance Use Type: None <Krish Price - Last Filed: 05/22/17 18:52> <Jason Short - Last Filed: 05/22/17 18:56> - Past Medical History Allergies/Adverse Reactions: Allergies Allergy/AdvReac Type Severity Reaction Status Date / Time No Known Allergies Allergy Verified 05/22/17 18:14 Home Medications: Ambulatory Orders Magnesium Citrate [Citroma -] 300 ml PO ONCE #1 bottle 11/29/17 Review of Systems - Review of Systems Able to Perform ROS?: Yes Comments:: 05/22/17 18:55 CONSTITUTIONAL: Absent: fever, no chills, no fatigue EYES: Absent: visual changes ENT: Absent: ear pain, no sore throat CARDIOVASCULAR: Absent: chest pain, no palpitations RESPIRATORY: Absent: cough, no SOB GI: Present: abdominal pain (LLQ/RLQ), constipation Absent: no nausea, no vomiting GENITOURINARY: Present: Testicular pain Absent: dysuria, no frequency, no hematuria, no changes in urinary output MUSCULOSKELETAL: Absent: back pain, no arthralgia SKIN: Absent: rash NEURO: Absent: headache All Other Systems: Reviewed and Negative <Jason Short - Last Filed: 05/22/17 18:56> *Physical Exam - Vital Signs Last Vital Signs Temp Pulse Resp BP Pulse Ox 98.1 F 76 18 137/99 100 05/22/17 18:13 05/22/17 18:13 05/22/17 18:13 05/22/17 18:13 05/22/17 18:13 - Physical Exam Comments: 05/22/17 18:55 GENERAL: Well-appearing, well-nourished. No apparent distress. No pallor or icterus. HEENT: Normocephalic, atraumatic. PERRL, EOM intact. CARDIOVASCULAR: Normal S1, S2. Regular rate and rhythm. PULMONARY: Clear to auscultation bilaterally. ABDOMEN: Mild tend in the left lower quadrant over sigmoid with palpable stool. No right lower quadrant tenderness. Nondistended normal bowel sounds completely soft without mass or organomegaly GENITOURINARY: No testicular mass or tenderness. Normal sized testes bilaterally. No inguinal hernia EXTREMITIES: Normal ROM in all four extremities. No gross deformities. SKIN: Warm, dry. No rash NEUROLOGICAL: No focal neurological deficits. <Jason Short - Last Filed: 05/22/17 18:56> *DC/Admit/Observation/Transfer - Discharge Dispostion Admit: No <Krish Price - Last Filed: 05/22/17 18:52> - Attestations Scribe Attestion: 05/22/17 18:56 Documentation prepared by Jason Short, acting as medical administrative assistant for Krish Castro MD. <Jason Short - Last Filed: 05/22/17 18:56> Diagnosis at time of Disposition: Constipation Qualifiers: Constipation type: chronic idiopathic constipation Qualified Code(s): K59.04 - Chronic idiopathic constipation - Discharge Dispostion Disposition: HOME Condition at time of disposition: Stable - Prescriptions Prescriptions: Magnesium Citrate [Citroma -] 300 ml PO ONCE #1 bottle - Referrals Referrals: Kareem Tan MD [Staff Physician] - 1 week - Patient Instructions Printed Discharge Instructions: DI for Constipation Additional Instructions: It is strongly recommended that he be evaluated by gastroenterology specialist for further evaluation and treatment. If pain worsens or there is fever or other accompanying problems such as nausea, vomiting, or diarrhea, return to the emergency room.
[2017-05-22 18:24] VITALS: BP 137/99; PULSE 76; TEMP 98.1; BMI 21.9
== END 2017-05-22 18:58 | disposition home or self-care (01) ==
LOC: FER 18:13
DX: K59.04 Chronic idiopathic constipation (principal)
CPT/HCPCS: 99282-25